=== PATIENT | male | born 1955 | race African-American/Black ===

== ENCOUNTER → 2017-10-22 | Outpatient (CLI) | payer OTHER | END | disposition home or self-care (01) | LOC: US 11:07 | DX: N13.2 Hydronephrosis with renal and ureteral calculous obstruction (principal); N28.1 Cyst of kidney, acquired; I12.9 Hypertensive chronic kidney disease with stage 1 through stage 4 chronic kidney disease, or unspecified chronic kidney disease; N18.2 Chronic kidney disease, stage 2 (mild); E78.00 Pure hypercholesterolemia, unspecified; E11.9 Type 2 diabetes mellitus without complications | CPT/HCPCS: 76770 ==

== ENCOUNTER → 2019-02-11 | Day surgery (SDC) | payer OTHER ==
[~2019-02-11] VITALS: Ht 185.4 cm; Wt 121.1 kg
[~2019-02-11] MED LIST: AMLO1CAP54 PO; ASPI-630 PO; ATOR10TA60 PO; CIPR500T94 PO; CIPROFLOXACIN 400MG PREMIX 200 ML IV ONE; CRESTOR10 MG PO; DEXAMETHASONE SOD PHOS 4 MG/ML VIAL ONE; GLIM2TAB2 PO; GLIM4TAB2 PO; HYDR-3135 PO; HYDROcodone/APAP 5/325MG 1 TAB TABLET PO ONE; HYDROmorphone 2 MG/ML VIAL IV PRN; IOHEXOL 300 MG/ML 50 ML VIAL. ONE; IV RINGERS,LACTATED 1000ML 1,000 ML IV SCH; KETOROLAC 30 MG/ML VIAL. ONE; LIDOCAINE 2% JELLY 6ML IN APPLICATOR. ONE; LIDOCAINE 2% PF 5 ML VIAL. ONE; METF10007 PO; MIDAZOLAM HCL/PF 2 MG/2 ML VIAL. ONE; MORPHINE SULFATE 2 MG/ML VIAL. IV PRN; ONDANSETRON PF 4 MG/2 ML VIAL. IV PRN; ONDANSETRON PF 4 MG/2 ML VIAL. ONE; PROCHLORPERAZINE 10 MG/2 ML VIAL. IV PRN; PROPOFOL 20 ML IV ONE; SEVOFLURANE 61 TO 120 MINUTES. IH ONE; SITA100T PO; TRAM50TA PO; ePHEDrine PF IN SALINE 50 MG/10 ML SYRINGE. IV ONE; fentaNYL PF VIAL 100 MCG/2 ML VIAL IV PRN; fentaNYL PF VIAL 100 MCG/2 ML VIAL ONE
--- NOTE | 2019-02-11 12:04 | PDOC4 ---
OPERATIVE NOTE Date: Date: Feb 11, 2019 Pre-Op Diagnosis: left renal stone Post-Op Diagnosis: same Procedure Performed: cysto,left urs w laser/stent left rpg Surgeon: Anesthesia Type: ga Blood Loss: 2ml Specimans Obtained: stone Findings: left upper pole left mid pole left lower pole stone x2 Complications: none evident ANN STEWART MD Feb 11, 2019 12:04
--- NOTE | 2019-02-11 12:08 | DISCH ---
DISCHARGE INSTRUCTIONS Condition on Discharge Condition on Discharge: Stable Activity After Discharge Activity Instructions for Disc: Resume previous activity, Activity as tolerated Lifting Instructions after Dis: No heavy lifting, No pulling or pushing Exercise Instruction after Dis: Walk 15 min, 3 x per day, Progress as tolerated Weight Bearing Status after Di: Full weight bearing, As tolerated Diet after Discharge Diet after Discharge: Cardiac, Low Fat, Diabetic No Calorie Level Diet Texture: Regular Liquid Texture: Thin Liquid Swallowing Supervision: None needed Checks after Discharge Checks after discharge: Check blood press - daily Contacting the DRChristal after DC Call your doctor for: If your condition worsens Follow-Up Follow up with: in 2 weeksw jim prior Treatment/Equipment after DC Adaptive Equipment Issued: None ANN STEWART MD Feb 11, 2019 12:08
--- NOTE | 2019-02-11 12:28 | OP ---
DATE OF SURGERY: PREOPERATIVE DIAGNOSIS: Left renal stone. POSTOPERATIVE DIAGNOSIS: Left renal stone. PROCEDURES: 1. Left ureteroscopy with laser lithotripsy and stent placement. 2. Left retrograde pyelography interpretation. SURGEON: Heidi Sunshine M.D. ANESTHESIA: General. CONDITION: Stable. COMPLICATIONS: None. ESTIMATED BLOOD LOSS: 1-2 mL. FINDINGS: Several stones noted in the left kidney, 1 in the upper pole, 1 in mid pole and 2 in the lower pole. These are about 5-6 mm each. PROCEDURE IN DETAIL: The patient was taken back to the procedure room and placed under general anesthesia in supine position per protocol. He was prepped and draped in usual fashion in dorsal lithotomy position. Timeout was performed. SCDs were attached. IV antibiotics were administered. A 21-Tuvaluan rigid cystoscope was advanced per urethra into the bladder. Careful systemic view of the bladder visualized, no foreign body, stone or tumors. Left ureteral orifice was seen orthotopic in patent position. This was cannulated with a 5-Tuvaluan open-ended ureteral catheter. Gentle retrograde pyelography showed ureter kinking distally with no significant hydroureteronephrosis. Questionable filling defect noted in the upper and lower calices. A sensor wire was placed over the ureteral catheter all the way into the kidney. A dual lumen ureteral catheter was used to place a tandem working wire. An 04/08 navigator HD ureteral access sheath was used to get access into the proximal ureter. Flexible digital ureteroscope was advanced per the ureteral access sheath all the way into the kidney. Upper pole pyeloscopy visualized the stone. The same was done in mid pole and there were two stones in the lower pole, both of them in anterior location very difficult to reach. I first laser lithotripsied the one in the upper pole with all the potential obstructing fragments removed sequentially with the basket. Did the same for the mid pole. I had quite a bit of hard time getting into the lower pole stone given the angle of the infundibulum, but managed to grasp with the basket and bring it into the upper pole and laser until minute pieces, most of these were flushed through the ureter access sheath. At this time, I had instrumentation problems and had poor visualization from the bleeding from the above-mentioned ureteroscope digital images; however, radiographically there was no potentially large fragment left behind and I think I satisfactorily lithotripsied most of the above-mentioned fragments. Upon withdrawal of the scope, I did not see any evidence of any potentially obstructive fragments. The ureter looked intact; however, due to amount of bleeding, we decided to leave the stent behind in case the patient develops any blood clots or has trouble with the residual fragments. This was placed in endourological fashion with 6 x 20 stent with loops confirming the kidney and the bladder. The patient was awakened and taken to PACU in stable condition. DISPOSITION: We will send home with pain medication and antibiotic. He will get a KUB in 2 weeks. If no distinct stone visualized, we will pull out the stent in clinic. HEIDI SUNSHINE MD DR: FANI/mario JOB#: [id number] / [id number]
[2019-02-11 12:42] VITALS: BP 150/80
--- NOTE | 2019-02-12 09:07 | PATHOLOGY ---
[facility] Accession Number: [id number] . 01 Material submitted: . kidney - LEFT KIDNEY STONES. Modifiers: left . 01 Clinical history: . Left side kidney stones . 02 Diagnosis: Calculi, left kidney stones, removal: - Calculi/nephrolithiasis (gross diagnosis only). - Specimen forwarded for stone analysis, results to be reported in an addendum when available. LBQ 02/11/2019 1736 Local . 02 Electronically signed: . Ismael Beatty MD, Pathologist NPI- [id number] . 01 Gross description: . The specimen is received fresh, labeled "Jeremy Damon, left kidney stones". Received are multiple brown calculi measuring 0.9 x 0.3 x 0.2 cm in aggregate. The specimen is forwarded to sendouts for further processing. (SDY; 02/11/2019) SYU/SYU 02/11/2019 1724 Local . 02 Pathologist provided ICD-10: N20.0 . 02 CPT . 343620 Specimen Comment: A courtesy copy of this report has been sent to Specimen Comment: [phone]. Specimen Comment: Report sent to Performed at: 01 [facility] [address], [place], [place] [id number] MD Mumtaz Edawrds MD Phone: [phone] Performed at: 02 [facility] [address], [place] [id number] MD Judah Sheikh MD Phone: [phone]
== END ==
LOC: SURG 07:49
PROVIDERS: ATTEND Urology
DX: N20.0 Calculus of kidney (principal); E78.00 Pure hypercholesterolemia, unspecified; I10 Essential (primary) hypertension; E11.9 Type 2 diabetes mellitus without complications; Z85.46 Personal history of malignant neoplasm of prostate; Z98.52 Vasectomy status; Z86.010 Personal history of colon polyps; Z98.890 Other specified postprocedural states; Z87.891 Personal history of nicotine dependence; Z79.899 Other long term (current) drug therapy
CPT/HCPCS: 52356; 76000; 82365; 82962; 88300; A7015; C1769; C1776; C1892; C2617; J1100; J1885; J2001; J2250; J2405; J2704; J3010; Q9967; J0171